=== PATIENT | female | born 1965 | race Caucasian/White ===

== ENCOUNTER 2019-07-07 08:32 | Emergency (ER) | payer MEDICAID ==
[~2019-07-07] VITALS: Ht 162.6 cm; Wt 99.0 kg
[~2019-07-07 08:32] MED LIST: ACYC800T5 PO; AZIT250T PO; BENZ-6 PO; D-ME473S2 PO; PSEU-79 PO; TRAM50TA2 PO
[2019-07-07 08:45] VITALS: BP 126/90; PULSE 99; RESP 18; Ht 162.6 cm; Wt 99.0 kg
== END 2019-07-07 09:08 | disposition home or self-care (01) ==
LOC: FTE 08:32
DX: R05 Cough (principal)
CPT/HCPCS: 99283